=== PATIENT | female | born 1975 | race Caucasian/White ===

== ENCOUNTER 2022-10-14 04:44 | Emergency (ER) | payer OTHER, SELFPAY ==
[2022-10-14 04:51] VITALS: BP 122/92; PULSE 77; RESP 16; TEMP 36.7; O2SAT 98; BMI 30.5
[2022-10-14] MEDS: HYDROmorphone 0.5 mg/0.5 ml inj 1 MG IM (05:26)
[2022-10-14 06:01] VITALS: BP 123/78; PULSE 98; RESP 14
--- NOTE | 2022-10-14 09:38 | ED_ITS ---
HPI - Back Pain/Injury General Chief Complaint: Back Injury/Pain Stated Complaint: back pain Time Seen by Provider: 10/14/22 05:03 History of Present Illness HPI Narrative: 46-year-old woman presenting to the emergency department complaint of sharp pain radiating down left buttock posterior thigh stopping at the knee. Does have a history of low back pain but nothing really like this. Does not sound that has been formally diagnosed with sciatica. No specific injury. No weakness. Just pain. Ibuprofen acetaminophen hot baths have been tried and have just been no help. No loss of bowel or bladder control. Worse when goes to sit. Apparently has been sleeping on a couch this last week as pain has been escalating over that time. Got really bad the last couple of days. Has just not been able to sleep now. Related Data Home Medications Medication Instructions Recorded Confirmed sertraline 50 mg tablet mg 10/14/22 Allergies Allergy/AdvReac Type Severity Reaction Status Date / Time Penicillins Allergy Intermediate Rash Verified 10/14/22 04:51 Review of Systems Status of ROS: Reports: 6 or more systems reviewed and unremarkable except as noted in History and below PFSH PFSH Social History Smoking Status: Never smoker Do you use any of these nicotine containing products: None Second hand tobacco smoke exposure: No How often do you have a drink containing alcohol: monthly or less How many standard drinks containing alcohol do you have on a typical day: 1 or 2 How often do you have six or more drinks on one occasion: Never AUDIT-C Alcohol total score: 1 Non-prescribed substance use: denies use service: No Exam Narrative: Exam Narrative: A pleasant. Good energy. Skin is warm and dry. No evidence of trauma. Intact sensation in lower extremities. Well perfused. Negative straight leg raise bilaterally. Little sore around left SI joint but negative Christian's other than complaint of tightness at same side flexion and negative to anterior compression testing. She is however quite tender to palpation of the left buttock/piriformis area. No midline back tenderness or evidence of injury. Breathing easily. Lungs appear to be clear. Heart in a regular rate and rhythm. Const: Vital Signs, click to edit/add: Vital Signs - 24 hr 10/14/22 04:51 10/14/22 06:01 Temperature 98.0 F Pulse Rate [Pulse Oximeter] 77 98 Respiratory Rate 16 14 Blood Pressure [Le ft Upper Arm] 122/92 H 123/78 Pulse Oximetry 98 Oxygen Delivery Me thod Room Air Documenting provider has reviewed patient's vital signs: yes Course Vital Signs Vital signs: Initial Vital Signs Temperature 98.0 F 10/14/22 04:51 Temperature Source Temporal Artery Scan 10/14/22 04:51 Pulse Rate 77 10/14/22 04:51 Pulse Rhythm 10/14/22 04:51 Respiratory Rate 16 10/14/22 04:51 Blood Pressure 122/92 H 10/14/22 04:51 Blood Pressure Mean 102 10/14/22 04:51 Blood Pressure Position Semi-Fowlers 10/14/22 04:51 Pulse Oximetry 98 10/14/22 04:51 Oxygen Delivery Method 10/14/22 04:51 Vital Signs Temperature 98.0 F 10/14/22 04:51 Pulse Rate 77 10/14/22 04:51 Respiratory Rate 16 10/14/22 04:51 Blood Pressure 122/92 H 10/14/22 04:51 Pulse Oximetry 98 10/14/22 04:51 Oxygen Delivery Method 10/14/22 04:51 Temperature 98.0 F 10/14/22 04:51 Pulse Rate 98 10/14/22 06:01 Respiratory Rate 14 10/14/22 06:01 Blood Pressure 123/78 10/14/22 06:01 Pulse Oximetry 98 10/14/22 04:51 Oxygen Delivery Method 10/14/22 04:51 MDM - Back Pain/Injury MDM Narrative Medical decision making narrative: Discussed continuum of radicular low back pain. I would anticipate giving steroids pain medication from [facility]. Cathleen asked about potential muscle relaxer; I discussed more accurate sedating properties these medications. Would not appear that any imaging is necessary at this time. Do not have MRI capability either. She would like potential for sooner relief so was given an IM shot of Dilaudid prior to departure. Medical Records Attestation: I reviewed the patient's medical records. Discharge Plan Discharge Clinical Impression: Acute radicular low back pain, Piriformis syndrome Patient Disposition: Home w/ Parent or Adult Condition: Stable Additional Instructions: You do have elements of sciatica and some aspects of your exam would suggest more of a piriformis syndrome. You will notice that there are similarities in your handouts as herniated disc, sciatica, piriformis syndrome being somewhat of a continuum. I do hope this settles down over the next couple of days. Probably would be helpful to get on the books with your primary care provider as well for around a week from now. Prednisone, Flexeril, [place] from [facility]. Take the prednisone as 60 mg daily for 2 days 40 mg daily for 4 days and then 20 mg daily for 2 days. Prescriptions: No Action sertraline 50 mg tablet Label Comments: TAKE 1 AND 1/2 TABLETS BY MOUTH DAILY Stand Alone Forms: [employer] Info Instructions
== END 2022-10-14 06:01 | disposition home or self-care (01) ==
LOC: ED 05:29
PROVIDERS: Emergency Provider Family Medicine
DX: M54.16 Radiculopathy, lumbar region (principal); G57.00 Lesion of sciatic nerve, unspecified lower limb
CPT/HCPCS: 96372; 99283; 99284; J1170

== ENCOUNTER 2024-02-05 11:40 | Outpatient (CLI) | payer BC, SELFPAY ==
--- OUTSIDE RECORDS SUMMARY | 2024-02-05 11:54 | XMS_ITS | Encounter Summary ---
Author Name Unknown Organization [facility] Address [address] [place] [address]. [place] [address] Care Team Providers Care Elevator Operator Name Role Phone Juan Miguel Erickson MD Primary Care Provider [phone] Igor Celestin PA-C Unavailable [phone] Igor Celestin PA-C Unavailable [phone] Igor Celestin PA-C Primary Care Provider Reason for Visit * Reason Onset Date Comments Outreach 10/23/2017 VIP MAMMO ATT 1 Encounter Details Date Type Department Care Team (Late st Contact Info) Description 10/23/[address] [address] Juan Miguel Erickson MD [address] [place] [id number] Outreach (VIP MAMMO ATT 1) Social History Tobacco Use Types Packs/Day Years Used Date Smoking Tobacco: Never Smokeless Tobacco: Never Alcohol Use Standard Drinks/Week Comments No 0 (1 standard drink = 0.6 oz pur e alcohol) Sex and Gender Information Value Date Recorded Sex Assigned at Not on file Gender Identity Not on file Sexual Orientation Not on file documented as of this encounter Miscellaneous Notes * Telephone Encounter - Tammy Adams - 10/23/2017 7:39 PM CST 10/23/2017 Attempt 1 Contacted patient in regards to scheduling VIP mammogram Message on Engine [employer] Patient is also due for - NONE Comments: Outreach Cloth Examiner Tammy Adams ENT ESCORT documented in this encounter Plan of Treatment Not on file documented as of this encounter Visit Diagnoses Not on filedocumented in this encounter Additional Health Concerns Assessment Noted Time PHQ-9 Depression Total Score: 1 10/15/19 18 1:31 PM PATIENT ESCORT documented as of this encounter Care Teams Elevator Operator Relationship Specialty Start [place] [address] [place] [address] PCP - General Family Practice 10/15/10 01/16/19 Igor Celestin PA-C [id number] [place] [address] PCP - Assigned PCP 08/16/17 12/07/18 Igor Celestin PA-C [id number] [place] [address] PCP - General Physician Jet Wiper - Medical 01/17/19 Igor Celestin PA-C [id number] [place] [address] Assigned PCP 08/16/17 08/22/22 documented as of this encounter
--- OUTSIDE RECORDS SUMMARY | 2024-02-05 11:54 | XMS_ITS | Referral Summary ---
Author Name Unknown Organization [facility] Address [address] [place] [id number] Care Team Providers Care Explosives Detonator Name Role Phone Igor Mcmillan PA-C Primary Care Provider Allergies Active Allergy Reactions Criticality Noted Date Comments Penicillins Hives 01/20/2008 Seasonal Allergies 01/06/2014 Medications Medication Sig Dispensed Refills Start Date End Date Status Fexofenadine HCl (ERVIN PO) Take 180 mg by mouth daily Active Triamcinolone Acetonide (NASACORT ALLERGY 24HR NA) [place] in nostril daily Active cholecalciferol (VITAMIN D3) 5000 units (125 mcg) capsule Take 5,000 Units by mouth daily Active multivitamin w/minerals (MULTI-VITAMIN) tablet Take 1 tablet by mouth daily Active Calcium-Magnesium (KISHA/MAG PO) Take 1,000 mg by mouth Active TURMERIC PO Active Arp-3 Fatty Acids (FISH OIL OMEGA-3 PO) Take 1,000 mg by mouth Active LYSINE PO Active guaiFENesin-codeine (ROBITUSSIN AC) 100-10 MG/5ML solutionIndications:A cute sinusitis with coexisting condition requiring prophylactic treatment 1-2 tsp PO qhs prn cough 120 mL 08/22/2019 Active doxycycline hyclate (VIBRAMYCIN) 100 MG capsuleIndications:Ac jeanine sinusitis with coexisting condition requiring prophylactic treatment Take 1 capsule (100 mg) by mouth 2 times daily 20 capsule 08/22/2019 Active sertraline (ZOLOFT) 50 MG tabletIndications:Adj ustment disorder with mixed anxiety and depressed mood,ALENA (generalized anxiety disorder) TAKE 2 TABLETS(100 MG) BY MOUTH DAILY 180 tablet 3 08/22/2019 Active Active Problems Problem Noted Date Diagnosed Date ALENA (generalized anxiety disorder) 01/17/2019 CARDIOVASCULAR SCREENING; LDL GOAL LESS THAN 160 08/04/2010 Allergic state 01/20/2008 Overview: Problem list name updated by automated process. Provider to review Immunizations Name Administration Dates Next Due HepA-Peds, Unspecified 01/16/1999 Influenza Vaccine >6 months,quad, PF 08/22/2019, 08/03/2017 Poliovirus, inactivated (IPV) 01/16/1999 TDAP Vaccine (Adacel) 01/02/2010 Td (Adult), Adsorbed 01/16/1999 Yellow Fever 01/16/1999 Social History Tobacco Use Types Packs/Day Years Used Date Smoking Tobacco: Never Smokeless Tobacco: Never Alcohol Use Standard Drinks/Week Comments No 0 (1 standard drink = 0.6 oz pur e alcohol) PHQ-2 Answer Date Recorded PHQ-2 Score Incomplete 08/22/2019 Adolescent Education Answer Date Record ed Getting School Help Needed Not on file 07/12 Sex and Gender Information Value Date Recorded Sex Assigned at Not on file Gender Identity Not on file Sexual Orientation Not on file Last Filed Vital Signs Vital Sign Reading Time Taken Comments Blood Pressure 110/74 08/22/2019 3:56 PM TECHNICAL ADMINISTRATIVE ASSISTANT Pulse 80 08/22/2019 3:56 PM TECHNICAL ADMINISTRATIVE ASSISTANT Temperature 37 ??C (98.6 ??F) 08/22/2019 3:56 PM TECHNICAL ADMINISTRATIVE ASSISTANT Respiratory Rate 14 08/22/2019 3:56 PM TECHNICAL ADMINISTRATIVE ASSISTANT Oxygen Saturation 100% 08/22/2019 3:56 PM TECHNICAL ADMINISTRATIVE ASSISTANT Inhaled Oxygen Concentration - - Weight 78.9 kg (174 lb) 08/22/2019 3:56 PM TECHNICAL ADMINISTRATIVE ASSISTANT Height 167 cm (5' 5.75) 01/17/2019 9:20 AM CDT Body Mass Index 28.3 01/17/2019 9:20 AM CDT Plan of Treatment Not on file Procedures Procedure Name Priority Date/Time Associated Diagnosis Comments HPV HIGH RISK TYPES DNA CERVICAL Routine 05/07/2018 8:52 AM CDT Screening for cervical cancer COMPREHENSIVE METABOLIC PANEL Routine 05/07/2018 8:42 AM CDT Encounter for routine adult medical exam with abnormal findings LIPID REFLEX TO DIRECT LDL PANEL Routine 05/07/2018 8:42 AM CDT Encounter for routine adult medical exam with abnormal findings PAP IMAGED THIN LAYER SCREEN Routine 05/07/2018 8:34 AM CDT Screening for cervical cancer from Last 3 Months or Most Recently Relevant to Health Maintenance Results * HPV High Risk Types DNA Cervical (05/07/2018 8:52 AM CDT) HPV Source SurePath 05/07/2018 8:34 AM CDT [facility] HPV 16 DNA Negative NEG^Nega tive 05/12/2018 1:[address] [facility] HPV 18 DNA Negative NEG^Nega tive 05/12/2018 1:[address] [facility] Other HR HPV Negative NEG^Nega tive 05/12/2018 1:[address] [facility] Final Diagnosis This patient's sample is negative for HPV DNA. 05/12/2018 1:[address] [facility] Comment: This test was developed and its performance characteristics determined by the [facility]. It has not been cleared or approved by the FDA. The laboratory is regulated under CLIA as qualified to perform high-complexity testing. This test is used for clinical purposes. It should not be regarded as investigational or for research. (Note) METHODOLOGY: ??The Gilberto jasmin 4800 system uses automated extraction, simultaneous amplification of HPV (L1 region) and beta-globin, ?? followed by ??real time detection of fluorescent labeled HPV and beta globin using specific oligonucleotide probes . The test specifically identifies types HPV 16 DNA and HPV 18 DNA while concurrently detecting the rest of the high risk types (31, 33, 35, 39, 45, 51, 52, 56, 58, 59, 66 or 68). COMMENTS: ??This test is not intended for use as a screening device for women under age 30 with normal cervical cytology. ??Results should be correlated with cytologic and histologic findings. Close clinical followup is recommended. Specimen Description Cervical Cells 05/12/2018 7:[address] [facility] Comment:[id number] Cervical Cells 05/07/2018 8: 52 AM CDT 05/07/2018 8:54 AM CDT Igor Mcmillan PA-C LAB - BLOOD OR DERABLES [facility] [address] [place] [address] [address] * Lipid panel reflex to direct LDL Fasting (05/07/2018 8:42 AM CDT) Cholesterol 154 <200 mg/dL 05/08/2018 9:44 AM CDT [facility] Triglycerides 45 <150 mg/dL 05/08/2018 9:44 AM CDT [facility] Comment:Fasting specimen HDL Cholesterol 69 >49 mg/dL 8 9:57 AM CDT [facility] LDL Cholesterol Calculated 76 <100 mg/dL 05/08/2018 9:57 AM CDT [facility] Comment:Desirable: <100 mg/d l Non HDL Cholesterol 85 <130 mg/dL 05/08/2018 9:57 AM CDT [facility] Blood specimen (specimen) 05/07/2018 8:42 AM CDT 05/07/2018 8:47 AM CDT Igor Mcmillan PA-C LAB - BLOOD OR DERABLES [facility] [address] [place] [address] * (ABNORMAL) Comprehensive metabolic panel (05/07/2018 8:42 AM CDT) Sodium 140 133 - 144 mmol/L 05/08/2018 9:44 AM CDT [facility] Potassium 4.0 3.4 - 5.3 mmol/L 05/08/2018 9:44 AM CDT [facility] Chloride 107 94 - 109 mmol/L 05/08/2018 9:44 AM [facility] Carbon Dioxide 26 20 - 32 mmol/L 05/08/2018 9:44 AM [facility] Anion Gap 7 3 - 14 mmol/L 05/08/2018 9:44 AM [facility] Glucose 68(L) 70 - 99 mg/dL 05/08/2018 9:44 AM [facility] Comment:Fasting specimen Urea Nitrogen 11 7 - 30 mg/dL 05/08/2018 9:44 AM [facility] Creatinine 0.75 0.52 - 1.04 mg/dL 05/08/2018 9:44 AM [facility] GFR Estimate 83 >60 mL/min/1.7 m2 05/08/2018 9:44 AM [facility] Comment:Non GFR Calc GFR Estimate If Black >90 >60 mL/min/1.7 m2 05/08/2018 9:44 AM [facility] Comment: GFR Calc Calcium 8.3(L) 8.5 - 10.1 mg/dL 05/08/2018 9:44 AM [facility] Bilirubin Total 0.5 0.2 - 1.3 mg/dL 05/08/2018 9:44 AM [facility] Albumin 3.8 3.4 - 5.0 g/dL 05/08/2018 9:44 AM [facility] Protein Total 7.2 6.8 - 8.8 g/dL 05/08/2018 9:57 AM [facility] Alkaline Phosphatase 62 40 - 150 U/L 05/08/2018 9:57 AM [facility] ALT 21 0 - 50 U/L 05/08/2018 9:57 AM [facility] AST 13 0 - 45 U/L 05/08/2018 9:44 AM [facility] Blood specimen (specimen) 05/07/2018 8:42 AM CDT 05/07/2018 8:47 AM CDT Igor Mcmillan PA-C LAB - BLOOD OR DERABLES [facility] [address] [place] [address] * Pap imaged thin layer screen with HPV - recommended age 30 - 65 (05/07/2018 8:34 AM CDT) PAP NIL COPATH Copath Report Patient Name: CORTNEY MARRERO MR#: [id number] Specimen #: [id number] Collected: 05/07/2018 Received: 05/10/2018 Reported: 05/11/2018 14:55 Ordering Phy(s): IGOR MCMILLAN For improved result formatting, select 'View Enhanced Report Format' under Linked Documents section. SPECIMEN/STAIN PROCESS: Pap imaged thin layer prep screening (Surepath, FocalPoint with guided screening) ? Pap-Cyto x 1, HPV ordered x 1 SOURCE: Cervical, endocervical Pap imaged thin layer prep screening (Surepath, FocalPoint with guided screening) SPECIMEN ADEQUACY: Satisfactory for evaluation. -Transformation zone component present. CYTOLOGIC INTERPRETATION: Negative for intraepithelial lesion or malignancy Electronically signed out by: Nelli AMADOR, (ASCP) Processed and screened at [facility] CLINICAL HISTORY: Ablation, Papanicolaou Test Limitations: ??Cervical cytology is a screening test with limited sensitivity; regular screening is critical for cancer prevention; Pap tests are primarily effective for the diagnosis/preventi on of squamous cell carcinoma, not adenocarcinomas or other cancers. TESTING LAB LOCATION: [address] ??[id number] COLLECTION SITE: Client: ??[facility] Location: [facility] (R) COPATH Cytologic material (specimen) 05/07/2018 8:34 AM CDT 05/10/2018 9:59 AM CDT Igor CLEMONS - JOHANNA Bridges LINICAL SPECIMEN COPATH from Last 3 Months or Most Recently Relevant to Health Maintenance Care Teams Explosives Detonator Relationship Specialty Start Date End Date Igor Mcmillan PA-C PCP - General Physician Applied Psychology Teacher - Medical 01/17/19
--- OUTSIDE RECORDS SUMMARY | 2024-02-05 11:54 | XMS_ITS | Encounter Summary ---
Author Name Unknown Organization [facility] Address [address] [place] [address]. [place] [address] Care Team Providers Care Foxer Name Role Phone Juan Miguel Erickson MD Primary Care Provider [phone] Igor Celestin PA-C Unavailable [phone] Igor Celestin PA-C Unavailable [phone] Igor Celestin PA-C Primary Care Provider Reason for Visit * Reason Onset Date Comments Outreach 02/16/2018 VIP MAMMO - ATT 1 Encounter Details Date Type Department Care Team (Late st Contact Info) Description 02/16/[address], [address] [place] [address] [place] [address] [place], [place] [id number] Outreach (VIP MAMMO - ATT 1) Social History Tobacco Use Types [...] encounter Miscellaneous Notes * Telephone Encounter - Dara Quiroz - 02/16/2018 10:44 AM CDT 02/16/2018 Attempt 1 Contacted patient in regards to scheduling VIP mammogram Message on voicemail Patient is also due for - Preventive Health Screening Cervical/PAP Comments: Outreach Palliative Care Specialist AT documented in this encounter Plan of Treatment Not on file documented as of this encounter Visit Diagnoses Not on filedocumented in this encounter Additional Health Concerns Assessment Noted Time PHQ-9 Depression Total Score: 1 10/15/19 18 1:31 PM IT TRAINER documented as of this encounter Care Teams Foxer Relationship Specialty Start [place] [address] [place] [address] PCP - General Family Practice 10/15/10 01/16/19 Igor Celestin PA-C [address] [place] [address] PCP - Assigned PCP 08/16/17 12/07/18 Igor Celestin PA-C [address] [place] [address] PCP - General Physician National Recruiter - Medical 01/17/19 Igor Celestin PA-C [address] [place] [address] Assigned PCP 08/16/17 08/22/22 documented as of this encounter
--- OUTSIDE RECORDS SUMMARY | 2024-02-05 11:54 | XMS_ITS | Clinical Summary ---
Author Name Unknown Organization [place] Address [address] [place] [id number] Care Team Providers Care Refractory Tile Helper Name Role Phone Igor Mcmillan PA-C Primary Care Provider Allergies Active Allergy Reactions Criticality Noted Date Comments Penicillins Hives 01/20/2008 Seasonal Allergies 01/06/2014 Medications Medication Sig Dispensed Refills Start Date End Date Status Fexofenadine HCl (ERVIN PO) Take 180 mg by mouth daily Active Triamcinolone Acetonide (NASACORT ALLERGY 24HR NA) [place] in nostril daily Active cholecalciferol (VITAMIN D3) 5000 units (125 mcg) capsule Take 5,000 Units by mouth daily Active multivitamin w/minerals (MULTI-VITAMIN) tablet Take 1 tablet by mouth daily Active Calcium-Magnesium (KISHA/MAG PO) Take 1,000 mg by mouth Active TURMERIC PO Active [place]-3 Fatty Acids (FISH OIL OMEGA-3 PO) Take [...] Td (Adult), Adsorbed 01/16/1999 Yellow Fever 01/16/1999 Family History Medical History Relation Comments Cancer Father Kidney Diabetes Maternal Grandfather Arthritis Maternal Grandmother Depression Maternal Grandmother Diabetes Maternal Grandmother Autoimmune Disease Mother Hep, Sjogrens Relation Status Comments Daughter 1 Alive Daughter 2 Alive Daughter 3 Alive Father Alive Maternal Grandfather Maternal Grandmother Mother Alive Sister Alive Son Alive Social History Tobacco Use Types Packs/Day Years [...] Comments Blood Pressure 110/74 08/22/2019 3:56 PM [employer] Pulse 80 08/22/2019 3:56 PM [employer] Temperature 37 ??C (98.6 ??F) 08/22/2019 3:56 PM [employer] Respiratory Rate 14 08/22/2019 3:56 PM [employer] Oxygen Saturation 100% 08/22/2019 3:56 PM [employer] Inhaled Oxygen Concentration - - Weight 78.9 kg (174 lb) 08/22/2019 3:56 PM [employer] Height 167 cm (5' 5.75) 01/17/2019 9:20 [...] HPV Source [facility] 05/07/2018 8:34 AM CDT [facility] HPV 16 DNA Negative NEG^Nega tive 05/12/2018 1:46 PM CDT [facility] HPV 18 DNA Negative NEG^Nega tive 05/12/2018 1:46 PM CDT [facility] Other HR HPV Negative NEG^Nega tive 05/12/2018 1:46 PM CDT [facility] Final Diagnosis This patient's sample is negative for HPV DNA. 05/12/2018 1:46 PM CDT [facility] Comment: This test was developed and its performance characteristics determined by the [facility], Molecular Diagnostics Laboratory. It has not been [...] Description Cervical Cells 05/12/2018 7:57 AM CDT [facility] Comment:[id number] Cervical Cells 05/07/2018 8: 52 AM CDT 05/07/2018 8:54 AM CDT Igor Mcmillan PA-C LAB - BLOOD OR DERABLES [facility] [address] [place] [address] [address] * Lipid panel reflex to direct LDL Fasting (05/07/2018 8:42 AM CDT) Cholesterol 154 <200 mg/dL 05/08/2018 9:44 AM CDT [facility] Triglycerides 45 <150 mg/dL 05/08/2018 9:44 AM CDT [facility] Comment:Fasting specimen HDL Cholesterol 69 >49 mg/dL 8 9:57 AM CDT [facility] LDL Cholesterol Calculated 76 <100 mg/dL 05/08/2018 9:57 AM CDT [facility] Comment:Desirable: <100 mg/d l Non HDL Cholesterol 85 <130 mg/dL 05/08/2018 9:57 AM CDT [facility] Blood specimen (specimen) 05/07/2018 8:42 AM CDT 05/07/2018 8:47 AM CDT Igor Mcmillan PA-C LAB - BLOOD OR DERABLES [facility] [address] [place] [address] * (ABNORMAL) Comprehensive metabolic panel (05/07/2018 8:42 AM CDT) Sodium 140 133 - 144 mmol/L 05/08/2018 9:44 AM [facility] Potassium 4.0 3.4 - 5.3 mmol/L 05/08/2018 9:44 AM [facility] Chloride 107 94 - 109 mmol/L 05/08/2018 9:44 AM [facility] Carbon Dioxide 26 20 - 32 mmol/L 05/08/2018 9:44 AM [facility] Anion Gap 7 3 - 14 mmol/L 05/08/2018 9:44 AM [facility] Glucose 68(L) 70 - 99 mg/dL 05/08/2018 9:44 AM [facility] Comment:Fasting specimen Urea Nitrogen 11 7 - 30 mg/dL 05/08/2018 9:44 AM [facility] Creatinine 0.75 0.52 - 1.04 mg/dL 05/08/2018 9:44 AM [facility] GFR Estimate 83 >60 mL/min/1.7 m2 05/08/2018 9:44 AM [facility] Comment:Non GFR Calc GFR Estimate If Black >90 >60 mL/min/1.7 m2 05/08/2018 9:44 AM [facility] Comment: GFR Calc Calcium 8.3(L) 8.5 - 10.1 mg/dL 05/08/2018 9:44 AM [facility] Bilirubin Total 0.5 0.2 - 1.3 mg/dL 05/08/2018 9:44 AM [facility] Albumin 3.8 3.4 - 5.0 g/dL 05/08/2018 9:44 AM [facility] Protein Total 7.2 6.8 - 8.8 g/dL 05/08/2018 9:57 AM [facility] Alkaline Phosphatase 62 40 - 150 U/L 05/08/2018 9:57 AM [facility] ALT 21 0 - 50 U/L 05/08/2018 9:57 AM CDT [facility] AST 13 0 - 45 U/L 05/08/2018 9:44 AM CDT [facility] Blood specimen (specimen) 05/07/2018 8:42 AM CDT 05/07/2018 8:47 AM CDT Igor Mcmillan PA-C LAB - BLOOD OR DERABLES [facility] [address] [place] [address] * Pap imaged thin layer screen with HPV - recommended age 30 - 65 (05/07/2018 8:34 AM CDT) PAP URIEL [facility] Report Patient Name: CORTNEY MARRERO MR#: [id number] Specimen #: [id number] Collected: 05/07/2018 Received: 05/10/2018 Reported: 05/11/2018 14:55 [...] Nelli AMADOR, (ASCP) Processed and screened at [facility], [facility] CLINICAL HISTORY: Ablation, Papanicolaou Test Limitations: ??Cervical cytology is a screening test with limited sensitivity; regular screening is critical for cancer prevention; Pap tests are primarily effective for the diagnosis/preventi on of squamous cell carcinoma, not adenocarcinomas or other cancers. TESTING LAB LOCATION: [facility] [address] [place], [place] ??[address] COLLECTION SITE: Client: ??[facility] Location: [facility] (R) [facility] Cytologic material (specimen) 05/07/2018 8:34 AM CDT 05/10/2018 9:59 AM CDT Igor Mcmillan PA-C LAB - OPTIME C LINICAL SPECIMEN [facility] from Last 3 Months or Most Recently Relevant to Health Maintenance Care Teams Refractory Tile Helper Relationship Specialty Start Date End Date Igor Mcmillan PA-C PCP - General Physician [employer] Grade Teacher - Medical 01/17/19
== END 2024-02-05 11:41 | disposition home or self-care (01) ==
PROVIDERS: PCP Physician Assistant Medical; Visit Provider Family Medicine
DX: R10.84 Generalized abdominal pain (principal); A09 Infectious gastroenteritis and colitis, unspecified
CPT/HCPCS: 80053; 87045; 87046; 87077; 87147; 87177; 87207; 87209; 87427

== ENCOUNTER 2025-01-24 17:12 | Emergency (ER) | payer BC, SELFPAY ==
[2025-01-24] VITALS (36 sets, daily range): BP systolic 109–162; BP diastolic 70–148; PULSE 65–86; RESP 7–35; TEMP 37.2; O2SAT 94–100; BMI 31.3
--- OUTSIDE RECORDS SUMMARY | 2025-01-24 17:14 | XMS_ITS | Clinical Summary ---
Author Organization [place] Address [address] [place] [address] Care Team Providers Care Machine Riveter Name Role Phone Igor Celestin PA-C Primary Care Provider Allergies Active Allergy Reactions Criticality Noted Date Comments Penicillins Hives 01/20/2008 Seasonal Allergies 01/06/2014 Medications Fexofenadine HCl (ERVIN PO) Take 180 mg by mouth daily Active Triamcinolone Acetonide (NASACORT ALLERGY 24HR NA) [place] in nostril daily Active cholecalciferol (VITAMIN D3) 5000 units (125 mcg) capsule Take 5,000 Units by mouth daily Active multivitamin w/minerals (MULTI-VITAMIN) tablet Take 1 tablet by mouth daily Active Calcium-Magnesium (KISHA/MAG PO) Take 1,000 mg by mouth Active TURMERIC PO Active [place]-3 Fatty Acids (FISH OIL OMEGA-3 PO) Take 1,000 mg by mouth Active LYSINE PO Active guaiFENesin-codei ne (ROBITUSSIN AC) 100-10 MG/5ML solutionIndicatio ns:Acute sinusitis with coexisting condition requiring prophylactic treatment 1-2 tsp PO qhs prn cough 120 mL 9 Active doxycycline hyclate (VIBRAMYCIN) 100 MG capsuleIndication s:Acute sinusitis with coexisting condition requiring prophylactic treatment Take 1 capsule (100 mg) by mouth 2 times daily 20 capsule 9 Active sertraline (ZOLOFT) 50 MG tabletIndications :Adjustment disorder with mixed anxiety and depressed mood,ALENA (generalized anxiety disorder) TAKE 2 TABLETS(100 MG) BY MOUTH DAILY 180 tablet 3 9 Active Active Problems Problem Noted Date Diagnosed Date ALENA (generalized anxiety disorder) 01/17/2019 CARDIOVASCULAR SCREENING; LDL GOAL LESS THAN 160 08/04/2010 Allergic state 01/20/2008 Overview (07/06/2015): Problem list name updated by automated process. [...] School Help Needed Not on file 07/12 Comments No Sex and Gender Information Value Date Recorded Sex Assigned at Not on file Legal Sex Female 3:12 AM [employer] Gender Identity Not on file Sexual Orientation Not on file Last Filed Vital Signs Vital Sign Reading Time Taken Comments Blood Pressure 110/74 08/22/2019 3:56 PM [employer] Pulse 80 08/22/2019 3:56 PM [employer] Temperature 37 C (98.6 F) 08/22/2019 3:56 PM [employer] Respiratory Rate 14 08/22/2019 3:56 PM [employer] Oxygen Saturation 100% 08/22/2019 3:56 PM [employer] Inhaled Oxygen Concentration - - Weight 78.9 kg (174 lb) 08/22/2019 3:56 PM [employer] Height 167 cm (5' 5.75) 01/17/2019 9:20 AM CDT Body Mass Index 28.3 01/17/2019 9:20 AM CDT Plan of Treatment Not on file Insurance [employer] Care Teams Machine Riveter Relationship Specialty Start Date End Date Igor Celestin PA-C PCP - General Physician Leach Runner - Medical 01/17/19
--- OUTSIDE RECORDS SUMMARY | 2025-01-24 17:15 | XMS_ITS | Data Portability ---
Author Organization [facility] TECH ED/WOODSHOP TEACHER, [id number] Address [address] [address] Assessment Encounter Date Assessment Date Assessment LastModified by Organization Details LastModified Time 06/01/2024 06/01/2024 New patient annual examination. Perimenopausal status. Menopausal symptoms including vasomotor symptoms weight gain and feeling off. History of endometrial ablation. First physical examination in over 5 years, due for laboratory assessment, Pap smear, colonoscopy and mammography. The PHQ & ALENA were reviewed with the patient. They have no clinically significant mood concerns. Not available 06/05/2024 10:09:20 Plan of Treatment Reminders Order Date Submit Date Provider Last Modified By Organization Details Last Modified Time Details Appointments None record ed. Lab pap, LB + HR HPV 024 06/01/[address], [address], [place], [address], 16:32:58 Referral None record ed. Procedures None record ed. Surgeries None record ed. Imaging None record ed. Medication Orders None record ed. Patient TargetsNo targets recorded. Patient Instructions Encounter Date Encounter Id Patient Instructions Last Modified By Organization Details Last Modified Time 06/01/2024 [id number] Return next week for fasting labs including the following: Comprehensive metabolic panel, lipid panel, TSH reflex to free T4, FSH, CBC with platelets. Consider options including low-dose oral contraceptive agents to manage symptoms. Not available 06/05/2024 10:10:03 I discussed with Cathleen her clinical presentation and findings on examination. Her last visit to our office was 2013 at which time she had a NovaSure endometrial ablation. She is now perimenopausal with fairly modest periods every 3 months or so. Over the last 6 years she is felt perimenopausal with typical symptoms but over the last 6 months, worsening menopausal symptoms. A complete examination was performed today. She will return for fasting blood work next week. Cathleen will schedule a mammogram also for next week and arrange for a colonoscopy by years and. Bone density evaluation will be recommended in the coming years. An option to manage her symptoms would be a low-dose oral contraceptive. Further measures to be determined after the labs - Encouraged breast self-awareness and monthly breast exams. - Recommend mammogram annually starting at age 40. - Encouraged regular exercise. - Discussed calcium, vitamin D, and weight bearing exercise for bone health. - Recommend colonoscopy starting at age 45. - Encouraged patient to establish care with a PCP to manage non-ACCOUNTS SUPERVISOR concerns if she does not already have one. - Reviewed current cervical cancer screening guidelines. - Discussed common perimenopausal changes including vaginal dryness, hot flashes, night sweats, mood changes, and weight changes. Discussed when treatment is needed. and imaging has been completed. Not available 06/05/2024 10:13:02 Reason for Referral None Reported. Results Created Date Observation Date Name Description Value Unit Range Abnormal Flag Note LastModifiedBy Organization Detail LastModifiedTime 06/01/20 24 06/01/2024 HPV AND GYNEC OLOGI C CYTOL OGY PANEL human papilloma virus 16 DNA Negati ve negati ve Not Available [address], [place], [address], 06/07/2024 16:32:58 06/01/20 24 06/01/2024 HPV AND GYNEC OLOGI C CYTOL OGY PANEL human papilloma virus 18 DNA Negati ve negati ve Not Available [address], [place], [address], 06/07/2024 16:32:58 06/01/20 24 06/01/2024 HPV AND GYNEC OLOGI C CYTOL OGY PANEL human papilloma virus other Negati ve negati ve Not Available [address], [place], [address], 06/07/2024 16:32:58 06/01/20 24 06/01/2024 HPV AND GYNEC OLOGI C CYTOL OGY PANEL final diagnosis See note below This patie nt's sampl e is negat daiana for high risk HPV DNA. METHO DOLOG Y: The BD COR syste m uses autom ated extra ction , simul taneo us ampli ficat ion of HPV (E6/E 7 oncog taco) and beta- globi n, follo wed by real time detec tion of fluor escen t label ed HPV and beta globi n using speci fic oligo nucle otide probe s. The test speci fical ly ident ifies types HPV 16 DNA and HPV 18 DNA while concu rrent ly detec ting the rest of the high risk types (31, 33, 35, 39, 45, 51, 52, 56, 58, 59, 66 or 68). COMME NTS: This test is not inten ded for use as a scree toney devic e for woman under age 30 with mira l cervi jorge cytol ogy. Resul ts shoul d be corre lated with cytol ogic and histo logic findi ngs. Close clini jorge follo w up is recom coreen Cao e see the separ ate Gynec ologi c Cytol ogy (Pap) repor t from the same colle ction date. Not Available [address], [place], [address], 06/07/2024 16:32:58 06/01/20 24 06/01/2024 GYNEC OLOGI C CYTOL OGY PAP SMEAR gynecologic cytology SEE RESULT S BELOW SPECI MEN SOURC E [place] End[facility] ervic al/va ginal BKR LAB AP ACCOUNTS SUPERVISOR INTER PRETA TION: Negat daiana for Intra epith elial Lesio n or Berta dong (NILM ) Elect swapnil gomez mar d by Gissel Saldivar do, CT (ASCP ) on 024 at 3:29 PM Path repor t.com ments Imp Spec: Papan icola ou Test Limit ation s: Cervi jorge cytol ogy is a scree toney test with limit ed sensi tivit y, and regul ar scree toney is criti jorge for cance r preve ntion . Pap tests are prima rily effec tive for the diagn osis/ preve ntion of squam ous cell carci noma, not adeno carci noma or other cance rs. BKR LAB AP ACCOUNTS SUPERVISOR ADEQU ACY: Satis facto ry for evalu ation , endoc ervic al/tr ansfo rmati on zone compo nent prese nt Path repor t.rel evant Hx Spec: none BKR LAB AP LMP: 2023 BKR LAB AP PREVI OUS ABNOR MAL: No BKR LAB AP PREVI OUS ABNL DX: Negat daiana Path repor t.com ments Imp Spec: The techn ical compo nent of this testi ng was compl [facility] . Stain contr ols for all stain s resul rufus withi n this repor t have been revie wed and show appro priat e react ivity . BKR AP ASSOC IATED HPV REPOR T: Pleas e see the assoc iated HPV High Risk Types DNA Cervi jorge repor t for Speci men [id number] from the same [facility] ction date. Not Available [address], [place], [address], 06/07/2024 16:33:01 06/07/20 24 06/07/2024 CBC WITH PLATE LETS WBC count 6.3 10e3/ uL 4.0-11 .0 Not Available [address], [place], [address], 06/07/2024 22:22:11 06/07/20 24 06/07/2024 CBC WITH PLATE LETS RBC count 4.54 10e6/ uL 3.80-5 .20 Not Available [address], [place], [address], 06/07/2024 22:22:11 06/07/20 24 06/07/2024 CBC WITH PLATE LETS hemoglobin 14.4 g/dL 11.7-1 5.7 Not Available [address], [place], [address], 06/07/2024 22:22:11 06/07/20 24 06/07/2024 CBC WITH PLATE LETS hematocrit 44.6 % 35.0-4 7.0 Not Available [address], [place], [address], 06/07/2024 22:22:11 06/07/20 24 06/07/2024 CBC WITH PLATE LETS MCV 98 fL 78-100 Not Available [address], [place], [address], 06/07/2024 22:22:11 06/07/20 24 06/07/2024 CBC WITH PLATE LETS MCH 31.7 pg 26.5-3 3.0 Not Available [address], [place], [address], 06/07/2024 22:22:11 06/07/20 24 06/07/2024 CBC WITH PLATE LETS MCHC 32.3 g/dL 31.5-3 6.5 Not Available [address], [place], [address], 06/07/2024 22:22:11 06/07/20 24 06/07/2024 CBC WITH PLATE LETS RDW 11.9 % 10.0-1 5.0 Not Available [address], [place], [address], 06/07/2024 22:22:11 06/07/20 24 06/07/2024 CBC WITH PLATE LETS platelet count 300 10e3/ uL 150-45 0 Not Available [address], [place], [address], 06/07/2024 22:22:11 06/07/20 24 06/07/2024 CBC WITH PLATE LETS % neutrophils 46 % Not Available [facility] [address] [facility] [address], [place], [address], 06/07/2024 22:22:11 06/07/20 24 06/07/2024 CBC WITH PLATE LETS % lymphocytes 41 % Not Available [facility] [address] [facility] [address], [place], [address], 06/07/2024 22:22:11 06/07/20 24 06/07/2024 CBC WITH PLATE LETS % monocytes 8 % Not Available [address], [place], [address], 06/07/2024 22:22:11 06/07/20 24 06/07/2024 CBC WITH PLATE LETS % eosinophils 4 % Not Available [address], [place], [address], 06/07/2024 22:22:11 06/07/20 24 06/07/2024 CBC WITH PLATE LETS % basophils 1 % Not Available [address], [place], [address], 06/07/2024 22:22:11 06/07/20 24 06/07/2024 CBC WITH PLATE LETS % immature granulocytes 0 % Not Available [facility] [address] [facility] [address], [place], [address], 06/07/2024 22:22:11 06/07/20 24 06/07/2024 CBC WITH PLATE LETS NRBCs per 100 WBC 0 /100 <1 Not Available [facility] [address] [facility] [address], [place], [address], 06/07/2024 22:22:11 06/07/20 24 06/07/2024 CBC WITH PLATE LETS absolute neutrophils 3.0 10e3/ uL 1.6-8. 3 Not Available [address], [place], [address], 06/07/2024 22:22:11 06/07/20 24 06/07/2024 CBC WITH PLATE LETS absolute lymphocytes 2.5 10e3/ uL 0.8-5. 3 Not Available [address], [place], [address], 06/07/2024 22:22:11 06/07/20 24 06/07/2024 CBC WITH PLATE LETS absolute monocytes 0.5 10e3/ uL 0.0-1. 3 Not Available [address], [place], [address], 06/07/2024 22:22:11 06/07/20 24 06/07/2024 CBC WITH PLATE LETS absolute eosinophils 0.2 10e3/ uL 0.0-0. 7 Not Available [address], [place], [address], 06/07/2024 22:22:11 06/07/20 24 06/07/2024 CBC WITH PLATE LETS absolute basophils 0.0 10e3/ uL 0.0-0. 2 Not Available [address], [place], [address], 06/07/2024 22:22:11 06/07/20 24 06/07/2024 CBC WITH PLATE LETS absolute immature granulocytes 0.0 10e3/ uL <=0.4 Not Available [address], [place], [address], 06/07/2024 22:22:11 06/07/20 24 06/07/2024 CBC WITH PLATE LETS absolute NRBCs 0.0 10e3/ uL Not Available [address], [place], [address], 06/07/2024 22:22:11 06/07/20 24 06/07/2024 COMPR EHENS DAIANA METAB OLIC PANEL patient fasting > 8hrs? Yes Not Available [address], [place], [address], 06/07/2024 22:22:14 06/07/20 24 06/07/2024 COMPR EHENS DAIANA METAB OLIC PANEL sodium 141 mmol/ L 135-14 5 Not Available [address], [place], [address], 06/07/2024 22:22:14 06/07/20 24 06/07/2024 COMPR EHENS DAIANA METAB OLIC PANEL potassium 4.3 mmol/ L 3.4-5. 3 Not Available [address], [place], [address], 06/07/2024 22:22:14 06/07/20 24 06/07/2024 COMPR EHENS DAIANA METAB OLIC PANEL carbon dioxide (co2) 29 mmol/ L 22-29 Not Available [address], [place], [address], 06/07/2024 22:22:14 06/07/20 24 06/07/2024 COMPR EHENS DAIANA METAB OLIC PANEL anion gap 8 mmol/ L 7-15 Not Available [address], [place], [address], 06/07/2024 22:22:14 06/07/20 24 06/07/2024 COMPR EHENS DAIANA METAB OLIC PANEL urea nitrogen 19.8 mg/dL 6.0-20 .0 Not Available [address], [place], [address], 06/07/2024 22:22:14 06/07/20 24 06/07/2024 COMPR EHENS DAIANA METAB OLIC PANEL creatinine 0.80 mg/dL 0.51-0 .95 Not Available [address], [place], [address], 06/07/2024 22:22:14 06/07/20 24 06/07/2024 COMPR EHENS DAIANA METAB OLIC PANEL GFR estimate 89 mL/mi n/1.7 3m2 >60 eGFR calcu lated using 2020 CKD-E PI equat ion. Not Available [facility] [address] [facility] [address], [place], [address], 06/07/2024 22:22:14 06/07/20 24 06/07/2024 COMPR EHENS DAIANA METAB OLIC PANEL calcium 9.2 mg/dL 8.8-10 .4 Refer ence inter vals for this test were updat ed on [address] our healt hy popul ation more accur ately . There may be diffe rence s in the chris ing of prior resul ts with simil ar value s perfo rmed with this metho d. Those prior resul ts can be inter prete d in the damian xt of the updat ed refer ence inter vals. Not Available [address], [place], [address], 06/07/2024 22:22:14 06/07/20 24 06/07/2024 COMPR EHENS DAIANA METAB OLIC PANEL chloride 104 mmol/ L 98-107 Not Available [address], [place], [address], 06/07/2024 22:22:14 06/07/20 24 06/07/2024 COMPR EHENS DAIANA METAB OLIC PANEL glucose 93 mg/dL 70-99 Not Available [address], [place], [address], 06/07/2024 22:22:14 06/07/20 24 06/07/2024 COMPR EHENS DAIANA METAB OLIC PANEL alkaline phosphatase 78 U/L 40-150 Not Available [facility] [address] [facility] [address], [place], [address], 06/07/2024 22:22:14 06/07/20 24 06/07/2024 COMPR EHENS DAIANA METAB OLIC PANEL AST 18 U/L 0-45 Not Available [address], [place], [address], 06/07/2024 22:22:14 06/07/20 24 06/07/2024 COMPR EHENS DAIANA METAB OLIC PANEL ALT 16 U/L 0-50 Not Available [address], [place], [address], 06/07/2024 22:22:14 06/07/20 24 06/07/2024 COMPR EHENS DAIANA METAB OLIC PANEL protein total 7.6 g/dL 6.4-8. 3 Not Available [address], [place], [address], 06/07/2024 22:22:14 06/07/20 24 06/07/2024 COMPR EHENS DAIANA METAB OLIC PANEL albumin 4.4 g/dL 3.5-5. 2 Not Available [address], [place], [address], 06/07/2024 22:22:14 06/07/20 24 06/07/2024 COMPR EHENS DAIANA METAB OLIC PANEL bilirubin total 0.4 mg/dL <=1.2 Not Available [address], [place], [address], 06/07/2024 22:22:14 06/07/20 24 06/07/2024 LIPID PANEL cholesterol 188 mg/dL <200 Not Available [address], [place], [address], 06/07/2024 22:22:15 06/07/20 24 06/07/2024 LIPID PANEL triglyceride s 95 mg/dL <150 Not Available [address], [place], [address], 06/07/2024 22:22:15 06/07/20 24 06/07/2024 LIPID PANEL direct measure HDL 68 mg/dL >=50 Not Available [facility] [address] [facility] [address], [place], [address], 06/07/2024 22:22:15 06/07/20 24 06/07/2024 LIPID PANEL LDL cholesterol calculated 101 mg/dL <=100 high Not Available [facility] [address] [facility] [address], [place], [address], 06/07/2024 22:22:15 06/07/20 24 06/07/2024 LIPID PANEL non HDL cholesterol 120 mg/dL <130 Not Available [facility] [address] [facility] [address], [place], [address], 06/07/2024 22:22:15 06/07/20 24 06/07/2024 LIPID PANEL patient fasting > 8hrs? Yes Liliana stero l Yelitza able: <200 mg/dL Trigl yceri jamaica Mira l: Less than 150 mg/dL [place] High: 150-1 99 mg/dL High: 200-4 99 mg/dL Very High: Great er than or equal to 500 mg/dL Direc t Measu re HDL Femal e: Great er than or equal to 50 mg/dL Male: Great er than or equal to 40 mg/dL LDL Liliana stero l Yelitza able: <100m g/dL Above Yelitza able: 100-1 29 mg/dL [place] High: 130-1 59 mg/dL High: 160-1 89 mg/dL Very High: >= 190 mg/dL Non HDL Liliana stero l Yelitza able: 130 mg/dL Above Yelitza able: 130-1 59 mg/dL [place] High: 160-1 89 mg/dL High: 190-2 19 mg/dL Very High: Great er than or equal to 220 mg/dL Not Available [facility] [address] [facility] [address], [place], [address], 06/07/2024 22:22:15 06/07/20 24 06/07/2024 FOLLI MADDY STIMU LATIN G HORMO NE FSH 52.2 mIU/m L 19 years and older : Folli cular phase : 3.5-1 2.5 mIU/m L Ovula tion phase : 4.7-2 1.5 mIU/m L Lutea l phase : 1.7-7 .7 mIU/m L Postm enopa use: 25.8- 134.8 mIU/m L Not Available [address], [place], [address], 06/07/2024 22:22:15 06/07/20 24 06/07/2024 TSH WITH REFLE X TO FREE T4 TSH 1.25 uIU/m L 0.30-4 .20 Not Available [address], [place], [address], 06/07/2024 22:22:15 06/11/20 24 06/11/2024 MAMMO , scree toney, tomos ynthe sis, bilat eral No observ ation record ed. [email or web address] [id number], [address], 06/13/2024 09:24:34 06/11/20 24 06/11/2024 lay lette r No observ ation record ed. SHERMAN [id number], [address], 06/13/2024 13:36:25 Result Notes Documentation Provider Name and Address Organization Details Recorded Time Mammo, Screening, Tomosynthesis, Bilateral : Mammogram Screening Mammogram Type: 3D Bilateral Radiological Classification: Bi-Rads 2 - Benign Findings ACR Category: c-Heterogeneously dense, may obscure small masses Followup planned: Screening mammogram one year BELKIS Burr - [facility] TE[facility] ED/WOODSHOP TEACHER 06/13/2024 09:24:34 Procedures Surgical History Date Name Laterality Status Provider Name and Address Organization Details Recorded Time 4 Date of Last Mammogram completed Antonio Carmichael [facility] TECH ED/WOODSHOP TEACHER 06/13/2024 09:24:49 Date of Last Pap Smear completed Eliane Beach [facility] TECH ED/WOODSHOP TEACHER 06/08/2024 15:04:14 Imaging Results Imaging Date Name Status LastModified by Organiz ation Details LastModified Time 06/11/2024 MAMMO, screening, tomosynthesis, bilateral completed [email or web address] [id number] [address], [place], [address], 06/13/2024 09:24:34 06/11/2024 lay letter completed SHERMAN [id number] [address], [address], 06/13/2024 13:36:25 Procedure Notes None recorded. Medical Equipment None Reported. Allergies Allergen ID Allergen Name Allergen Category Reaction Reaction Severity Criticality Documentation Date Start Date Code Code System Note Provider Name and Address Organization Details Recorded Time 160716 Product containin g penicilli n (product) medicatio n hives severe Not available 06/01/2024 [address] [facility] TECH ED/WOODSHOP TEACHER 15:38:36 Medications Name Sig Start Date Stop Date Status Note LastModified by Organization Details LastModified Time azithromyci n 250 mg tablet 06/01 completed Not Available Not Available Not Available sertraline 100 mg tablet TAKE 1 TABLET BY MOUTH EVERY DAY active Not Available Not Available No t Available Zoloft 50 mg tablet 150 mg every day by oral route. active Not Available Not Available No t Available zolpidem 5 mg tablet TAKE 1 TABLET BY MOUTH EVERY DAY AT BEDTIME. MAY REPEAT 1 TIME IF NO RESPONSE IN 30-60 MINUTES 06/01 completed Not Available Not Available Not Available azithromyci n 500 mg tablet TAKE 1 TABLET BY MOUTH EVERY DAY FOR 3 DAYS 06/01 completed Not Available Not Available Not Available Vienva 0.1 mg-20 mcg tablet TAKE 1 TABLET BY MOUTH EVERY DAY active Not Available Not Available No t Available Vitals Date Recorded Body weight Body mass index (BMI) Body height Systolic blood pressure Diastolic blood pressure Provider Name and Address Organization Details Last Updated DateTime 06/01/2024 49361.55 g 33 kg/m2 170.18 cm 126 mm[Hg] 80 mm[Hg] Jojo Estevez [place] - [facility]/[employer]OP TEACHER 15:38:32 Social History Question Answer Notes LastModified by [employer] Details LastModified Time Tobacco Smoking Status Never Smoker Jojo rosenthal, [place] - [facility]/WO[employer]SHOP TEACHER 06/01/2024 15:38:58 What Is Your Level Of Alcohol Consumption? 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 Information not available 06/01/2024 Are You Sexually Active? Yes Information not available 06/01/2024 How Much Tobacco Do You Smoke? No Information not available 06/01/2024 Do You Use Any Illicit Or Recreational Drugs? No Information not available 06/01/2024 Sex: Unknown Functional Status Question Answer Note LastModified by Organizat Quid Details LastModified Time What is your exercise level? Occasional Information not available 06/01/2024 Mental Status None recorded. Family History Relationship Description Onset Age of this Age Resolved Age Notes LastModified by Organization Details LastModified Time Maternal Grandmother Depressive disorder 40 Not available 2023 15:38:42 Daughter Diabetes mellitus 14 Not available 2023 15:38:42 Medical History No medical history recorded. Gynecological History Statement/Question Response History of Abnormal PAP N History of Recurrent Ovarian Cysts N Date of Last Mammogram 06/13/2024 Date of LMP 05/23/2024 2 14 60 History of Sexually Transmitted Infectio n N Y Diethylstilbestrol ([place]) exp osed daughters of women who took [place] during ? N HPV Vaccine Not Completed Current Control Method Tubal Ligat ion Urinary Incontinence Symptoms N Date of Last Pap Smear 06/01/2024 Obstetrics History GPAL:G 0 P 0 0 0 0 Past Encounters Encounter ID Performer Location Encounter Start Date Encounter Closed Date Diagnosis/Indication Diagnosis SNOMED-CT Code Diagnosis ICD10 Code Diagnosis Note [id number] ARELIS SCHMITT MD [id number] DA_[facility] [address] [facility] SHANAESAN [facility] ,[address] [facility] BELKIS Gonzáles [id number] 06/01/2024 15:21:07 06/07/2024 16:50:02 Gynecologic examination 94078117 Z01.419 Menopausal symptom 48411 002 N95.1 Health Concerns Section Related Observation LastModified by Organization Detai ls LastModified Time None Recorded Concern Status LastModified by Organization Details LastModified Time None Recorded Advance Directives Directive None Recorded Payers Encounter Date Sequence Insurance Name Policy Number Policy De Luna Covered Member ID De Luna Member ID Guarantor Name 06/01/2024 1 [place] [id number] Cathleen Gonzáles Russell [id number] Cathleen Nivia Drew Notes Date Note Type Note Provider Name and Address Organization Details Recorded Time 06/01/2024 text/html Cathleen present s her office today as a new patient annual examination. Her last visit to our office was 10 years ago at which time she had not NovaSure endometrial ablation. She then was seen by primary care but has not had an annual examination in over 5 years. She continues to have relatively light periods every 3 months or so that will become a bit less regular. She has had perimenopausal symptoms over the last 6 years but over the last 6 months have become increasingly problematic. She is experienced weight gain vasomotor symptoms and feeling off. She is currently taking Zoloft as her father in the past year. She has questions regarding HRT given her perimenopausal status and symptoms. Regina has normal blood pressure, no history of migraine headaches with aura, no history of thrombotic events or embolic phenomena. She has no known liver disease or estrogen [place] [id number] [facility],[address], [place], [address], [place] - [facility]/[employer] TEACHER 06/05/2024 10:14:08 OBGyn Episode No OBEpisode recorded.
--- OUTSIDE RECORDS SUMMARY | 2025-01-24 17:15 | XMS_ITS | Encounter Summary ---
Author Organization [facility] Address [address] [place] [address]. [place] [address] Care Team Providers Care Director Of Catering Name Role Phone Juan Miguel Erickson MD Primary Care Provider [phone] Igor Celestin PA-C Unavailable [phone] Igor Celestin PA-C Unavailable [phone] Igor Celestin PA-C Primary Care Provider [phone] Reason for Visit * Reason Onset Date Comments Outreach 10/23/2017 VIP MAMMO ATT 1 Encounter Details Date Type Department Care Team ([facility] Contact Info) Description 10/23/[address] [address] Juan Miguel Erickson MD [address] [place] [address] Outreach (VIP MAMMO ATT 1) Social [...] on file Legal Sex Female 3:12 AM ADVERTISING OPERATIONS COORDINATOR Gender Identity Not on file Sexual Orientation Not on file documented as of this encounter Miscellaneous Notes * Telephone Encounter - Tammy Adams - 10/23/2017 7:39 PM CST 10/23/2017 Attempt 1 Contacted patient in regards to scheduling VIP mammogram Message on voicemail Patient is also due for - NONE Comments: Outreach Safety Professional Tammy Adams RTISING OPERATIONS COORDINATOR documented in this encounter Plan of Treatment Not on file documented as of this encounter Visit Diagnoses Not on filedocumented in this encounter Additional Health Concerns Assessment Noted Time PHQ-9 Depression Total Score: 1 10/15/19 18 1:31 PM ADVERTISING OPERATIONS COORDINATOR documented as of this encounter Care Teams Director Of Catering Relationship Specialty Start [place] [address] [place] [address] PCP - General Family Practice 10/15/10 01/16/19 Igor Celestin PA-C [id number] [place] [address] PCP - Assigned PCP 08/16/17 12/07/18 Igor Celestin PA-C [id number] [facility] [place] [address] PCP - General Physician Field Assembly Supervisor - Medical 01/17/19 Igor Celestni PA-C [id number] [place] [address] Assigned PCP 08/16/17 08/22/22 documented as of this encounter
--- OUTSIDE RECORDS SUMMARY | 2025-01-24 17:15 | XMS_ITS | Clinical Summary ---
Author Organization [facility] Address [address] [place] [address] Care Team Providers Care Systems Specialist Name Role Phone Pcp, No Primary Care Provider Unavailabl e Allergies Active Allergy Reactions Criticality Noted Date Comments Penicillins Hives High 08/21/2024 Medications sertraline (ZOLOFT) 100 mg tablet Take 75 mg by mouth once daily. Active levonorgestrel-e thinyl estrad, 0.1mg-20mcg, (ALESSE-28) 0.1-20 mg-mcg tablet Take 1 Tablet by mouth once daily. 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 30 Capsule 4 Active neomycin-polymyx in-hydrocortison e (CORTISPORIN OTIC) otic suspensionIndica tions:Acute infective otitis externa, right Place 3 Drops into right ear three times daily. 10 mL 4 Active vjrmccxn-drq-lyf n-vitamin K 18 mg iron-25 mcg tab Take 1 Tablet by mouth once daily. Active Lysine HCl, Bulk, 100 % powd Mix in liquid then take by mouth. Active calcium phos-vit D3-mag oxide 600 mg calcium- 500 unit-50 mg tab Take 1,000 mg by mouth. Active fexofenadine HCl (ERVIN ORAL) Take by mouth. Active fluticasone propionate (FLONASE ALLERGY RELIEF NASL) Inhale into affected nostril(s). Active guaifen/phenylep h/acetaminophn (MUCINEX COLD AND SINUS ORAL) Take by mouth. Active ibuprofen (ADVIL; MOTRIN,, OB S.A.M. MEDICATION) 200 mg Take 600 mg by mouth every 6 hours if needed. Active Active Problems Problem Noted Date Diagnosed Date ALENA (generalized anxiety disorder) 01/17/2019 Encounter for screening for cardiovascular disor ders 08/04/2010 Allergy 01/20/2008 Overview (10/02/2024): Problem list name updated by automated process. Provider to review Social History Tobacco Use Types Packs/Day Years Used Date Smoking Tobacco: Never Smokeless Tobacco: Never Tobacco Cessation:Counseling Given: Not Answered Alcohol Use Standard Drinks/Week Comments Not Currently 0 (1 standard drink = 0.6 oz pur e alcohol) Comments No Sex and Gender Information Value Date Recorded Sex Assigned at Not on file Legal Sex Female 3:12 PM CDT Gender Identity Not on file Sexual Orientation Not on file Obstetrics History Last Filed Vital Signs Vital Sign Reading Time Taken Comments Blood Pressure 101/72 10/02/2024 9:33 AM JOB SPOTTER Pulse 81 10/02/2024 9:33 AM JOB SPOTTER Temperature 36.5 C (97.7 F) 10/02/2024 9:33 AM JOB SPOTTER Respiratory Rate 16 10/02/2024 9:33 AM JOB SPOTTER Oxygen Saturation 96% 10/02/2024 9:33 AM JOB SPOTTER Inhaled Oxygen Concentration - - Weight 94.1 kg (207 lb 6.4 oz) 10/02/2024 9:33 A M JOB SPOTTER Height - - Body Mass Index - - Plan of Treatment Health Maintenance Due Date Last Done Comments Tdap 1984 Depression screening for age 12+ 1985 HIV for age 15-65 1988 BMI (ht and wt on same day) for age 18+ 12/23/1991 Hepatitis C screening for age 18-79 12/23/1991 Tetanus booster 1993 Pap test for age 21-65 1994 Colonoscopy through age 75 2018 Lipids for age 45-75 2018 Mammogram for age 45-75 2018 Pneumococcal series for age 50+ (1 of 1 - PCV) 024 Zoster (shingles) series for age 50+ (1 of 2) 12/23/19 24 COVID-19 vaccine series ( season) Influenza Vaccine (Season Ended) 2025 Insurance [employer] Care Teams Systems Specialist Relationship Specialty Start Date End Date Pcp, No . PCP - General 08/21/24
--- OUTSIDE RECORDS SUMMARY | 2025-01-24 17:15 | XMS_ITS | Encounter Summary ---
Author Organization [facility] Address [address] [place] [address]. [place] [address] Care Team Providers Care Water Attendant Name Role Phone Juan Miguel Erickson MD Primary Care Provider [phone] Igor Celestin PA-C Unavailable [phone] Igor Celestin PA-C Unavailable [phone] Igor Celestin PA-C Primary Care Provider [phone] Reason for Visit * Reason Onset Date Comments Outreach 02/16/2018 VIP MAMMO - ATT 1 Encounter Details Date Type Department Care Team ([facility] st Contact Info) Description 02/16/2018 Telephone [facility] [address] [facility] [address], [address] [place] [address] [place] [address] [place] [address] Outreach (VIP MAMMO - ATT 1) Social [...] on file Legal Sex Female 3:12 AM ARCHITECTURAL WOOD MODEL 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 Gender Identity Not on file Sexual Orientation Not on file documented as of this encounter Miscellaneous Notes * Telephone Encounter - Dara Quiroz - 02/16/2018 10:44 AM CDT 02/16/2018 Attempt 1 Contacted patient in regards to scheduling VIP mammogram Message on voicemail Patient is also due for - Preventive Health Screening Cervical/PAP Comments: Outreach Field Artillery Basic AT documented in this encounter Plan of Treatment Not on file documented as of this encounter Visit Diagnoses Not on filedocumented in this encounter Additional Health Concerns Assessment Noted Time PHQ-9 Depression Total Score: 1 10/15/19 18 1:31 PM ARCHITECTURAL WOOD MODEL MAKER documented as of this encounter Care Teams Water Attendant Relationship Specialty Start [place] [address] [place] [address] PCP - General Family Practice 10/15/10 01/16/19 Igor Celestin PA-C [address] [place] [address] PCP - Assigned PCP 08/16/17 12/07/18 Igor Celestin PA-C [address] [place] [address] PCP - General Physician Sheet Metal Erector - Medical 01/17/19 Igor Celestin PA-C [id number] [place] [address] Assigned PCP 08/16/17 08/22/22 documented as of this encounter
--- NOTE | 2025-01-24 17:24 | ED.GENADULT ---
HPI - General Adult General Date Seen: 01/24/25 Chief complaint: Chest Pain Stated complaint: Chest pains Time Seen by Provider: 01/24/25 17:22 History of Present Illness HPI narrative: 49-year-old female presenting to the ER today with chest pain. It started about 8:00 a.m. this morning while she was sitting. It is in her chest and radiates to her left shoulder as well as her left neck and arm. It has been coming and going throughout the day. According to clinic notes she has a history of anxiety and depression history of maxillary sinusitis. Previous surgical history includes , tubal ligation, endometrial ablation, and bladder surgery. She has no history of heart disease or lung disease. No history of asthma, PE. 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 She began experiencing chest pain around 8:00 a.m. this morning. It is located just to the left sternal border. When it comes it feels sharp and achy. Episodes typically last a minute or so and then get better. She notes that when the episodes happen if she scratches her shoulders forward and puts pressure on her left sternal border it seems to get better. The pain does radiate up to her left trapezius ridge and down her left upper arm but not past the elbow. No other symptoms. No weakness or numbness in her arm. No neck pain. No back pain. No trouble breathing. No palpitations. No fainting spells. No abdominal pain. No nausea vomiting. She is currently on estradiol to help treat with menopause symptoms. She has no history of DVT or PE. She did have a recent long ride in the car about 3 weeks ago (from [place], with her daughter who is moving to [place]). She has not had any swelling in her legs. Related Data Previous Rx's ?Medication ?Instructions ?Recorded sertraline 50 mg tablet 75 mg (1.5 x 50 mg) PO QDAY 90 11/15/24 days #135 tabs Allergies Allergy/AdvReac Type Severity Reaction Status Date / Time Penicillins Allergy Intermediate Rash Verified 02/15/24 13:36 [facility] Medical History (Updated 01/24/25 @ 20:47 by Ervin Celestin MD) Acute maxillary sinusitis ?J01.00 - Acute maxillary sinusitis, unspecified (ICD-10) Surgical History (Updated 11/26/23 @ 10:44 by Tone Goff PA-C) History of ?Z98.891 - History of uterine scar from previous surgery (ICD-10) History of bladder repair surgery ?Z98.890 - Other specified postprocedural states (ICD-10) History of tubal ligation ?Z98.51 - Tubal ligation status (ICD-10) History of endometrial ablation ?Z98.890 - Other specified postprocedural states (ICD-10) Social History Smoking Status: Never smoker Do you use any of these nicotine containing products: None Second hand tobacco smoke exposure: No How often do you have a drink containing alcohol: monthly or less How many standard drinks containing alcohol do you have on a typical day: 1 or 2 How often do you have six or more drinks on one occasion: Never AUDIT-C Alcohol total score: 1 Non-prescribed substance use: denies use service: No Exam Narrative: Exam Narrative: Constitutional: Appears well-developed and well-nourished. Alert. Conversant. Non toxic. HENT: Head: Atraumatic. Nose: Nose normal. Mouth/Throat: Oral mucosa is clear and moist. no trismus. Pharynx normal. Tonsils symmetric. No tonsillar enlargement, erythema, or exudate. Eyes: Conjunctivae normal. EOM normal. Pupils equal, round, and reactive to light. No scleral icterus. Neck: Normal range of motion. Neck supple. No tracheal deviation present. No JVD Cardiovascular: Normal rate, regular rhythm. No gallop. No friction rub. No murmur heard. Symmetric radial and posterior tibial artery pulses Pulmonary/Chest: Effort normal. No stridor. No respiratory distress. No wheezes. No rales. No rhonchi . She does have mild left mid sternal border tenderness. No bruising or rash there. Abdominal: Soft. No distension. No mass. No tenderness. No rebound. No guarding. Musculoskeletal: RUE: Normal range of motion. No tenderness. No deformity LUE: Normal range of motion. No tenderness. No deformity RLE: Normal range of motion. No edema. No tenderness. No deformity LLE: Normal range of motion. No edema. No tenderness. No deformity Neurological: Alert and oriented to person, place, and time. Normal strength. CN II-VII intact. No sensory deficit. GCS eye subscore is 4. GCS verbal subscore is 5. GCS motor subscore is 6. Normal coordination Skin: Skin is warm and dry. No rash noted. No pallor. Normal capillary refill. Psychiatric: Normal mood. Normal affect. Const: Vital Signs, click to edit/add: Vital Signs - 24 hr 01/24/25 17:18 01/24/25 17:59 01/24/25 18:00 Temperature 98.9 F Pulse Rate 77 79 Pulse Rate [Pulse Oximeter] 83 Respiratory Rate 18 18 14 Blood Pressure Blood Pressure [Ri ght Upper Arm] 135/86 Pulse Oximetry 96 95 98 Oxygen Delivery Me thod Room Air 01/24/25 18:10 01/24/25 18:15 01/24/25 18:30 Temperature Pulse Rate 74 71 74 Pulse Rate [Pulse Oximeter] Respiratory Rate 20 16 11 L Blood Pressure 121/77 Blood Pressure [Ri ght Upper Arm] Pulse Oximetry 96 98 96 Oxygen Delivery Me thod Room Air 01/24/25 18:31 01/24/25 18:32 01/24/25 18:45 Temperature Pulse Rate 72 72 69 Pulse Rate [Pulse Oximeter] Respiratory Rate 20 13 19 Blood Pressure 124/79 Blood Pressure [Ri ght Upper Arm] Pulse Oximetry 95 95 96 Oxygen Delivery Me thod Room Air 01/24/25 18:58 01/24/25 19:01 01/24/25 19:06 Temperature Pulse Rate 69 86 Pulse Rate [Pulse Oximeter] Respiratory Rate 18 11 L Blood Pressure 117/82 111/74 109/75 Blood Pressure [Ri ght Upper Arm] Pulse Oximetry 97 94 Oxygen Delivery Me thod Room Air 01/24/25 19:11 01/24/25 19:15 01/24/25 19:17 Temperature Pulse Rate 71 70 71 Pulse Rate [Pulse Oximeter] Respiratory Rate 17 23 17 Blood Pressure 126/75 120/75 Blood Pressure [Ri ght Upper Arm] Pulse Oximetry 97 95 96 Oxygen Delivery Me thod 01/24/25 19:22 01/24/25 19:27 01/24/25 19:30 Temperature Pulse Rate 70 72 77 Pulse Rate [Pulse Oximeter] Respiratory Rate 11 L 13 11 L Blood Pressure 123/77 122/80 Blood Pressure [Ri ght Upper Arm] Pulse Oximetry 97 95 97 Oxygen Delivery Me thod 01/24/25 19:32 01/24/25 19:37 01/24/25 19:38 Temperature Pulse Rate 78 68 74 Pulse Rate [Pulse Oximeter] Respiratory Rate 9 L 11 L 13 Blood Pressure 112/70 114/76 Blood Pressure [Ri ght Upper Arm] Pulse Oximetry 97 96 96 Oxygen Delivery Me thod 01/24/25 19:42 01/24/25 19:45 01/24/25 19:47 Temperature Pulse Rate 71 75 76 Pulse Rate [Pulse Oximeter] Respiratory Rate 19 18 13 Blood Pressure 114/80 129/74 Blood Pressure [Ri ght Upper Arm] Pulse Oximetry 94 96 96 Oxygen Delivery Me thod Room Air 01/24/25 19:52 01/24/25 19:57 01/24/25 20:00 Temperature Pulse Rate 69 82 73 Pulse Rate [Pulse Oximeter] Respiratory Rate 9 L 12 7 L Blood Pressure 123/80 145/92 H Blood Pressure [Ri ght Upper Arm] Pulse Oximetry 98 99 98 Oxygen Delivery Me thod 01/24/25 20:06 01/24/25 20:08 01/24/25 20:12 Temperature Pulse Rate 69 69 70 Pulse Rate [Pulse Oximeter] Respiratory Rate 17 14 16 Blood Pressure 162/148 H 126/76 128/76 Blood Pressure [Ri ght Upper Arm] Pulse Oximetry 100 97 94 Oxygen Delivery Me thod 01/24/25 20:15 01/24/25 20:17 01/24/25 20:23 Temperature Pulse Rate 76 69 78 Pulse Rate [Pulse Oximeter] Respiratory Rate 15 35 H 13 Blood Pressure 127/80 112/71 Blood Pressure [Ri ght Upper Arm] Pulse Oximetry 95 98 98 Oxygen Delivery Me thod 01/24/25 20:27 01/24/25 20:30 01/24/25 20:32 Temperature Pulse Rate 72 65 68 Pulse Rate [Pulse Oximeter] Respiratory Rate 8 L 15 20 Blood Pressure 120/80 117/74 Blood Pressure [Ri ght Upper Arm] Pulse Oximetry 95 97 98 Oxygen Delivery Me thod Room Air Course Course ED Course: Patient reported intermittent chest discomfort here in the ER. Not responsive to sublingual nitroglycerin. Patient's pain did get better after Toradol IV. Vital Signs Vital signs: Initial Vital Signs Temperature 98.9 F 01/24/25 17:18 Temperature Source Temporal Artery Scan 01/24/25 17:18 Pulse Rate 83 01/24/25 17:18 Respiratory Rate 18 01/24/25 17:18 Blood Pressure 135/86 01/24/25 17:18 Blood Pressure Mean 102 01/24/25 17:18 Blood Pressure Position Supine 01/24/25 17:18 Pulse Oximetry 96 01/24/25 17:18 Oxygen Delivery Method Room Air 01/24/25 17:18 Vital Signs Temperature 98.9 F 01/24/25 17:18 Pulse Rate 83 01/24/25 17:18 Respiratory Rate 18 01/24/25 17:18 Blood Pressure 135/86 01/24/25 17:18 Pulse Oximetry 96 01/24/25 17:18 Oxygen Delivery Method Room Air 01/24/25 17:18 Temperature 98.9 F 01/24/25 17:18 Pulse Rate 68 01/24/25 20:32 Respiratory Rate 20 01/24/25 20:32 Blood Pressure 117/74 01/24/25 20:32 Pulse Oximetry 98 01/24/25 20:32 Oxygen Delivery Method Room Air 01/24/25 20:32 Medications Administered Medications: Generic Name Dose Route Start Last Admin Trade Name Freq PRN Reason Stop Dose Admin Nitroglycerin 0.4 mg 01/24/25 18:54 01/24/25 19:05 Nitroglycerin 0.4 Mg Tab.Subl SUBLINGUAL 0.4 mg Q5M PRN Administration Discontinued Medications Generic Name Dose Route Start Last Admin Trade Name Freq PRN Reason Stop Dose Admin Aspirin 324 mg 01/24/25 17:39 01/24/25 17:44 Aspirin 81 Mg Tab.Chew PO 01/24/25 17:40 324 mg ONCE ONE Administration Ketorolac Tromethamine 15 mg 01/24/25 19:06 01/24/25 19:31 Ketorolac 15 Mg/Ml Inj IVP 01/24/25 19:07 15 mg ONCE ONE Administration Medical Decision Making [facility] Narrative Medical decision making narrative: This patient presents to the ER today for evaluation of chest pain that it has been occurring in short episodes (typically a minute or so per each episode) throughout the day today.. Differential was broad. No evidence of palpitations, syncope or other cardiac dysrhythmia. Overall, clinical presentation would be atypical for ACS however since she is a female, ACS is on the differential. workup with EKG and troponin is negative. HEART score is 1 . Given time since onset of symptoms, with intermittent pain all day we did check arrival and tilt and times here in the ER and both measurements are undetectable. do not think the patient needs to be admitted for further sets of enzymes. EKG shows no evidence for pericarditis at this time.. Clinical presentation not suggestive of myocarditis. Chest x-ray shows no evidence for pneumonia, pneumothorax, pulmonary edema, pleural effusion, rib fracture, cardiomegaly. Mediastinum is normal on the x-ray. The patient has no ripping or tearing pain through to the back and has symmetric pulses on exam, no other acute neuro findings so I doubt aortic dissection. Risk of radiation and contrast exposure would outweigh the benefit of CT angiogram. We considered PE for this patient. Only risk factor would be recent car travel from [place] to [place]. No lower extremity swelling or signs of DVT. Overall low risk. Screening D-dimer is 0.37, which makes the risk of contrast exposure and radiation from CT PE outweigh the benefit. No wheezing or bronchospasm to suggest COPD/asthma. No signs of chest wall cellulitis, shingles, injury. However she does have reproducible tenderness on her left sternal border with suggest this could possibly be musculoskeletal. With reasonable clinical confidence, I think the patient is safe for outpatient follow up. Discussed return precautions. Questions answered. Patient voices comfort with the plan. Lab Data Labs: Lab Results 01/24/25 01/24/25 Range/Units 18:00 20:05 WBC 9.75 (4.50-11.00) K/uL RBC 4.24 (4.00-5.20) m/uL Hgb 13.5 (12.0-16.0) gm/dL Hct 40.6 (33.0-51.0) % MCV 96 (80-100) fL MCH 32 (26-34) pg MCHC 33 (32-36) gm/dL RDW Coeff of Loulou 11.8 (11.5-15.5) % Plt Count 280 (140-440) K/uL Neut % (Auto) 54.3 (42.0-72.0) % Lymph % (Auto) 36.7 (20-44) % Christian % (Auto) 6.8 (0.0-11.0) % Eos % (Auto) 1.2 (0.0-7.0) % Baso % (Auto) 0.3 (0.0-3.0) % Neut # (Auto) 5.29 (1.7-7.0) K/uL Lymph # (Auto) 3.58 H (0.90-2.90) K/uL Christian # (Auto) 0.70 (0.00-0.90) K/UL Eos # (Auto) 0.12 (0.00-0.50) K/uL Baso # (Auto) 0.03 (0.00-0.30) K/uL Abs Immat Gran (auto) 0.07 (0.00-0.30) K/uL Imm/Tot Granulo (auto) 0.7 % D-Dimer Quant (PE/DVT) 0.32 (0.00-0.50) ug/ml Sodium 138 (135-149) mmol/L Potassium 3.7 (3.6-5.1) mmol/L Chloride 105 (96-114) mmol/L Carbon Dioxide 24 (20-32) mmol/L Anion Gap 9 (7-15) mEq/L BUN 17 (7-30) mg/dL Creatinine 0.9 (0.5-1.5) mg/dL Estimated Creat Clear 71.91 Estimated GFR 77 ml/min Glucose 109 (60-115) mg/dL Calcium 9.0 (8.4-10.6) mg/dL POC Troponin I 0.00 L 0.00 L (0.01-0.04) ng/ml Imaging Data Chest x-ray: Attestation: I have reviewed the pertinent imaging results. Radiologist's impression: FINDINGS: Mediastinum: The mediastinum is normal in appearance. The heart silhouette is normal in size and morphology. Lung: Both lungs are unremarkable in appearance. No sign of pleural effusion seen. No pneumothorax is identified. Bone and Soft tissue: Unremarkable for age. IMPRESSION: 1. No acute cardiopulmonary disease is seen. ECG Data Attestation: I personally reviewed and interpreted this ECG as follows: Interpretation: Normal sinus rhythm Rate: 81 IL: 150 QRS axis: Normal axis. Computer interprets possible anterior infarct which I think suggest the computer is interpreting a Q-wave in lead V3 but this is not a Q-wave there is a small proceeding R-wave. ST segment/T-wave. No ST segment elevation or depression. Nonspecific T-wave inversion in lead V1. T-wave flattening in lead V2 and V3. QTc: 418 Discharge Plan Discharge Clinical Impression: Chest pain Patient Disposition: Home, Self-Care Condition: Stable Instructions: Chest Pain (DC) Additional Instructions: As we discussed, so far your workup is reassuring we do not see any signs of serious causes of chest pain such as heart attack. However, not every condition will show up immediately. Monitor your symptoms carefully and come back to the ER right away if you have worsening pain, trouble breathing, fever, a palpitations or fainting spells, or if you have any other concerns. I suspect that your pain could possibly be related to irritation of the cartilage along left side of your breast bone. This typically will here all after a few days and can be treated with nonsteroidal anti-inflammatory medications such as ibuprofen or naproxen. Prescriptions: No Action sertraline 50 mg tablet 75 mg PO QDAY 90 Days Qty: 135 0RF Follow Up/Referrals: Tone Goff PA-C [Primary Care Provider] - Stand Alone Forms: [employer] Info Instructions
[2025-01-24] MEDS: ASPIRIN 81 MG TAB.CHEW 324 MG PO (17:44)
--- OUTSIDE RECORDS SUMMARY | 2025-01-24 18:00 | XMS_ITS | Clinical Summary ---
Author Organization [employer] [facility] Address [address] [place] [id number] Care Team Providers Care Religious Education Director Name Role Phone Pcp, No Primary Care Provider Unavailabl e Allergies Active Allergy Reactions Criticality Noted Date Comments Penicillins Hives High 08/21/2024 Medications sertraline (ZOLOFT) 100 mg tablet Take 75 mg by mouth once daily. Active levonorgestrel-e thinyl estrad, 0.1mg-20mcg, (ALESSE-28) 0.1-20 mg-mcg tablet Take 1 Tablet by mouth once daily. Active benzonatate (TESSALON) 100 mg capsuleIndicatio ns:[id number] syndrome manifesting as chronic cough Take 1-2 Capsules (100-200 mg) by mouth 3 times daily if needed for Cough. 30 Capsule 4 Active neomycin-polymyx in-hydrocortison e (CORTISPORIN OTIC) otic suspensionIndica tions:Acute infective otitis externa, right Place 3 Drops into right ear three times daily. 10 mL 4 Active caentcsh-bul-pss n-vitamin K 18 mg iron-25 mcg tab [...] Comments Blood Pressure 101/72 10/02/2024 9:33 AM HEADHUNTER Pulse 81 10/02/2024 9:33 AM HEADHUNTER Temperature 36.5 C (97.7 F) 10/02/2024 9:33 AM HEADHUNTER Respiratory Rate 16 10/02/2024 9:33 AM HEADHUNTER Oxygen Saturation 96% 10/02/2024 9:33 AM HEADHUNTER Inhaled Oxygen Concentration - - Weight 94.1 kg (207 lb 6.4 oz) 10/02/2024 9:33 A M HEADHUNTER Height - - Body Mass Index - [...] season) Influenza Vaccine (Season Ended) 2025 Insurance [employer] Care Teams Religious Education Director Relationship Specialty Start Date End Date Pcp, No . PCP - General 08/21/24
--- OUTSIDE RECORDS SUMMARY | 2025-01-24 18:00 | XMS_ITS | Clinical Summary ---
Author Organization [facility] Address [address] [place] [id number] Care Team Providers Care Gate Operator Name Role Phone Igor Celestin PA-C Primary Care Provider Allergies Active Allergy Reactions Criticality Noted Date Comments Penicillins Hives 01/20/2008 Seasonal Allergies 01/06/2014 Medications Fexofenadine HCl (ERVIN PO) Take 180 mg by mouth daily Active Triamcinolone Acetonide (NASACORT ALLERGY 24HR NA) [place] in nostril daily Active cholecalciferol (VITAMIN D3) 5000 units (125 mcg) capsule Take 5,000 Units by mouth daily Active multivitamin w/minerals (MULTI-VITAMIN) tablet Take 1 tablet by mouth daily Active Calcium-Magnesium (KISHA/MAG PO) Take 1,000 mg by mouth Active TURMERIC PO Active Flatgap-3 Fatty Acids (FISH OIL OMEGA-3 PO) Take [...] on file Legal Sex Female 3:12 AM WORKDAY CONSULTANT Gender Identity Not on file Sexual Orientation Not on file Last Filed Vital Signs Vital Sign Reading Time Taken Comments Blood Pressure 110/74 08/22/2019 3:56 PM WORKDAY CONSULTANT Pulse 80 08/22/2019 3:56 PM WORKDAY CONSULTANT Temperature 37 C (98.6 F) 08/22/2019 3:56 PM WORKDAY CONSULTANT Respiratory Rate 14 08/22/2019 3:56 PM WORKDAY CONSULTANT Oxygen Saturation 100% 08/22/2019 3:56 PM WORKDAY CONSULTANT Inhaled Oxygen Concentration - - Weight 78.9 kg (174 lb) 08/22/2019 3:56 PM WORKDAY CONSULTANT Height 167 cm (5' 5.75) 01/17/2019 9:20 AM CDT Body Mass Index 28.3 01/17/2019 9:20 AM CDT Plan of Treatment Not on file Insurance [employer] Care Teams Gate Operator Relationship Specialty Start Date End Date Igor Celestin PA-C PCP - General Physician Machine Worker - Medical 01/17/19
--- OUTSIDE RECORDS SUMMARY | 2025-01-24 18:00 | XMS_ITS | Encounter Summary ---
Author Organization [facility] Address [address] [place] [address]. [place] [address] Care Team Providers Care Trial Examiner Name Role Phone Juan Miguel Erickson MD Primary Care Provider [phone] Igor Celestin PA-C Unavailable [phone] Igor Celestin PA-C Unavailable [phone] Igor Celestin PA-C Primary Care Provider [phone] Reason for Visit * Reason Onset Date Comments Outreach 02/16/2018 VIP MAMMO - ATT 1 Encounter Details Date Type Department Care Team ([facility] st Contact Info) Description 02/16/2018 Telephone [facility] [address] [facility], [address] [place] [address] [place] [address] [place] [address] Outreach (VIP MAMMO - ATT [...] on file Legal Sex Female 3:12 AM 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 SOUS CHEF Gender Identity Not on file Sexual Orientation Not on file documented as of this encounter Miscellaneous Notes * Telephone Encounter - Dara Quiroz - 02/16/2018 10:44 AM CDT 02/16/2018 Attempt 1 Contacted patient in regards to scheduling VIP mammogram Message on voicemail Patient is also due for - Preventive Health Screening Cervical/PAP Comments: Outreach Pathology Assistant AT documented in this encounter Plan of Treatment Not on file documented as of this encounter Visit Diagnoses Not on filedocumented in this encounter Additional Health Concerns Assessment Noted Time PHQ-9 Depression Total Score: 1 10/15/19 18 1:31 PM SENIOR SOUS CHEF documented as of this encounter Care Teams Trial Examiner Relationship Specialty Start [place] [address] [place] [address] PCP - General Family Practice 10/15/10 01/16/19 Igor Celestin PA-C [id number] [facility] [place] [address] PCP - Assigned PCP 08/16/17 12/07/18 Igor Celestin PA-C [id number] [place] [address] PCP - General Physician 911 Operator - Medical 01/17/19 Igor Celestin PA-C [id number] [place] [address] Assigned PCP 08/16/17 08/22/22 documented as of this encounter
--- OUTSIDE RECORDS SUMMARY | 2025-01-24 18:00 | XMS_ITS | Encounter Summary ---
Author Organization [facility] Address [address] [place] [address]. [place] [address] Care Team Providers Care Undercutter Name Role Phone Juan Miguel Erickson MD Primary Care Provider [phone] Igor Celestin PA-C Unavailable [phone] Igor Celestin PA-C Unavailable [phone] Igor Celestin PA-C Primary Care Provider Reason for Visit * Reason Onset Date Comments Outreach 10/23/2017 VIP MAMMO ATT 1 Encounter Details Date Type Department Care Team ([facility] Contact Info) Description 10/23/[address] [address] Juan Miguel Erickson MD [address] [place] [id number] Outreach (VIP MAMMO ATT 1) Social [...] on file Legal Sex Female 3:12 AM MILK DRIER Gender Identity Not on file Sexual Orientation Not on file documented as of this encounter Miscellaneous Notes * Telephone Encounter - Tammy Adams - 10/23/2017 7:39 PM CST 10/23/2017 Attempt 1 Contacted patient in regards to scheduling VIP mammogram Message on voicemail Patient is also due for - NONE Comments: Outreach Health Information Managers Tammy Adams DRIER documented in this encounter Plan of Treatment Not on file documented as of this encounter Visit Diagnoses Not on filedocumented in this encounter Additional Health Concerns Assessment Noted Time PHQ-9 Depression Total Score: 1 10/15/19 18 1:31 PM MILK DRIER documented as of this encounter Care Teams Undercutter Relationship Specialty Start [place] [address] [place] [address] PCP - General Family Practice 10/15/10 01/16/19 Igor Celestin PA-C [id number] [place] [place] [address] PCP - Assigned PCP 08/16/17 12/07/18 Igor Celestin PA-C [id number] [facility] [address] PCP - General Physician Civil Engineer In Training - Medical 01/17/19 Igor Celestin PA-C [id number] [place] [address] Assigned PCP 08/16/17 08/22/22 documented as of this encounter
[2025-01-24 18:10] LABS: Basophils Absolute Auto 0.03 K/uL (0.00-0.30); Basophils Percent Auto 0.3 % (0.0-3.0); Eosinophils Absolute Auto 0.12 K/uL (0.00-0.50); Eosinophils Percent Auto 1.2 % (0.0-7.0); Hematocrit 40.6 % (33.0-51.0); Hemoglobin* 13.5 gm/dL (12.0-16.0); Immature Granulocytes Abs Auto 0.07 K/uL (0.00-0.30); Immature Granulocytes Pct Auto 0.7 %; Lymphocytes Absolute Auto 3.58 K/uL (0.90-2.90); Lymphocytes Percent Auto 36.7 % (20-44); Mean Corpuscular HGB Conc 33 gm/dL (32-36); Mean Corpuscular Hemoglobin 32 pg (26-34); Mean Corpuscular Volume 96 fL (80-100); Monocytes Percent Auto 6.8 % (0.0-11.0); Neutrophils Absolute Auto 5.29 K/uL (1.7-7.0); Neutrophils Percent Auto 54.3 % (42.0-72.0); Platelet Count* 280 K/uL (140-440); RDW Coefficient of Variation % 11.8 % (11.5-15.5); Red Blood Count 4.24 m/uL (4.00-5.20); White Blood Count* 9.75 K/uL (4.50-11.00)
[2025-01-24 18:13] LABS: Slide Review Reflex No
[2025-01-24 18:25] LABS: Chloride* 105 mmol/L (96-114); Sodium* 138 mmol/L (135-149)
[2025-01-24 18:26] LABS: Potassium* 3.7 mmol/L (3.6-5.1)
[2025-01-24 18:29] LABS: Anion Gap 9 mEq/L (7-15); Blood Urea Nitrogen* 17 mg/dL (7-30); Carbon Dioxide* 24 mmol/L (20-32); Creatinine* 0.9 mg/dL (0.5-1.5); Est. Creatinine Clearance* 71.91; Estimated Glomerular Filt Rate 77 ml/min; Glucose* 109 mg/dL (60-115)
[2025-01-24 18:47] LABS: D Dimer Quantitative* 0.32 ug/ml (0.00-0.50)
--- NOTE | 2025-01-24 18:54 | CRLHL7_ITS ---
For Patients: As a result of the Cures Act, medical imaging exams and procedure reports are released immediately into your electronic medical record. You may view this report before your referring provider. If you have questions, please contact your health care provider. INDICATION: Chest pain to left shoulder and left arm TECHNIQUE: Chest radiograph 2 views COMPARISON: None FINDINGS: Mediastinum: The mediastinum is normal in appearance. The heart silhouette is normal in size and morphology. Lung: Both lungs are unremarkable in appearance. No sign of pleural effusion seen. No pneumothorax is identified. Bone and Soft tissue: Unremarkable for age. IMPRESSION: 1. No acute cardiopulmonary disease is seen. Dictated by: Ted Irizarry MD @ 01/24/2025 19:25:46 (Electronically Signed)
[2025-01-24] MEDS: NITROGLYCERIN 0.4 MG TAB.SUBL SUBLINGUAL (19:05)
[2025-01-24] MEDS: KETOROLAC 15 MG/ML inj IVP (19:31)
== END 2025-01-24 21:21 | disposition home or self-care (01) ==
PROVIDERS: Emergency Provider Emergency Medicine; PCP Physician Assistant Medical
DX: R07.9 Chest pain, unspecified (principal)
CPT/HCPCS: 36415; 71046; 80048; 84484; 85025; 85379; 93005; 96374; 99283; 99284; 99285; A9270; J1885